=== PATIENT | male | born 1955 | race Caucasian/White ===

== ENCOUNTER 2018-03-26 15:33 | Emergency (ER) | payer OTHER ==
[2018-03-26 15:58] VITALS: BP 125/78
[2018-03-26] MEDS ORDERED: Lidocaine 1%* 5 ML VIAL INJ ONE (16:14)
--- NOTE | 2018-03-26 16:29 | UC ---
Laceration HPI - HPI Summary HPI Summary: 63 y/o male presents to the urgent care c/o right hand fourth digit cut w/ broken glass bottle at work around 1300 today. 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 Bleeding stopped w/ pressure. He has FROM of his Rt ring finger. Last tetanus vaccine was 12/2015. Pt deneis fever, numbness, SOB, chest pain, abdominal pain, N/v/d. - History Of Current Complaint Chief Complaint: UCLaceration Stated Complaint: FINGER LAC WC Time Seen by Provider: 03/26/18 16:12 Hx Obtained From: Patient Laceration Location: Finger - RT ring finger Mechanism Of Injury: Sharp Trauma Onset/Duration: Sudden Onset, Lasting Hours - 2 hrs Severity: Mild Pain Intensity: 1 Pain Scale Used: 0-10 Numeric Aggravating Factors: Movement Related History: Dominant Hand Right - Allergies/Home Medications Allergies/Adverse Reactions: Allergies Allergy/AdvReac Type Severity Reaction Status Date / Time codeine Allergy Intermediate paranoia Verified 03/26/18 15:59 PMH/Surg Hx/FS Hx/Imm Hx Previously Healthy: Yes - Pt denies PMHX - Surgical History Surgical History: Yes Surgery Procedure, Year, and Place: spleen removed - Family History Known Family History: Positive: Diabetes Family History: Multiple Myeloma - Social History Occupation: Employed Full-time Lives: With Family Alcohol Use: Rare Substance Use Type: None Smoking Status (MU): Former Smoker When Did the Patient Quit Smoking/Using Tobacco: 40 years ago - Immunization History Hx Tetanus, Diphtheria Vaccination: Yes - 12/2015 Review of Systems Constitutional: Negative Skin: Other - cut of RT ring finger w/ a glass Eyes: Negative ENT: Negative Respiratory: Negative Cardiovascular: Negative Gastrointestinal: Negative Genitourinary: Negative Motor: Negative Neurovascular: Negative Musculoskeletal: Other: - RT ring finger pain s/p cut Neurological: Negative Psychological: Negative Is Patient Immunocompromised?: No All Other Systems Reviewed And Are Negative: Yes Physical Exam - Summary Physical Exam Summary: Vital Signs Reviewed: Yes General: well developed, well nourished male sitting in the examining table w/o any apparent distress Eye Exam: Normal Eyes: Positive: Conjunctiva Clear - PERRLA, EOMI, fundi grossly normal ENT: Positive: Normal ENT inspection, Hearing grossly normal, Pharynx normal, TMs normal Neck: Positive: Supple, Nontender, No Lymphadenopathy Respiratory: Positive: Chest non-tender, Lungs clear, Normal breath sounds, No respiratory distress Cardiovascular: Positive: RRR, No Murmur, Pulses Normal, Brisk Capillary Refill Abdomen Description: Positive: Nontender, No Organomegaly, Soft. Negative: CVA Tenderness (R), CVA Tenderness (L) Bowel Sounds: Positive: Present Musculoskeletal: Positive: Strength Intact, ROM Intact, No Edema Neurological: Positive: Alert, Muscle Tone Normal Psychological Exam: Normal Skin: Positive:medial aspect of the RT 4th phalanx with a irregular superficial laceration about 2.2cm in size in a zig-zag shape near the DIPJ, non bleeding, no foreign body observed. mild tenderness to palpation, . FROM of RT arm, RT 4th phalanx, sensation intact, capillary refill brisk, and pulses WNL. Triage Information Reviewed: Yes Vital Signs: Initial Vital Signs Temp 98.2 F 03/26/18 15:53 Pulse 56 03/26/18 15:53 Resp 18 03/26/18 15:53 BP 125/78 03/26/18 15:53 Pulse Ox 100 03/26/18 15:53 Laceration Repair - Laceration Repair 1 Description: Irregular - Z-zag in shape superficial laceration of RT 4th phalanx Laceration Size After Repair: Length (cm) - 2.2cm Modified For Repair: No Type Injection: Local Anesthesia Used: 1.0% Lido - Digital block 3 ml Cleansing Completed Via Routine Prep: Yes Irrigation With Pressure Irrigation Device: Yes Closure Material: Sutures - 5 Closure Method: Single Layer Suture Of: Skin, SQ Suture Type: Nylon - 5.0 Laceration Course/Dx - Course/Dx Course Of Treatment: 63 y/o male presents to the urgent care c/o right hand fourth digit cut w/ broken glass bottle at work around 1300 today. 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 Bleeding stopped w/ pressure. He has FROM of his Rt ring finger. Last tetanus vaccine was 12/2015. Pt deneis fever, numbness, SOB, chest pain, abdominal pain, N/v/d. Hx obtained. PT w/ medial aspect of the RT 4th phalanx with a irregular superficial laceration about 2.2cm in size in a zig-zag shape near the DIPJ on examination. LACERATION PROCEDURE NOTE: . Copious irrigation was done with saline by the nurse and the wound explored. There was no FB or deep structure injury noted. FROM of RT forearm. procedure was explained and consent obtained, Timeout performed. Digital block performed w/o any adversed effect. The wound was anesthetized with 3 mL of 1% lido with good anesthesia. Sterile drape and prep were don. There were 5 sutures with 5.0 nylon type of suture. The length of the wound after closure was 2.2cm. No debridement done. Wound was covered bacitracin with sterile non adherent dressing by nurse. The Pt tolerated the procedure well without adverse effects. Neurovascular intact and FROM Rt 4th phalanx. Pt advised to f/u suture removal in 10-12 days and if any signs of infection develop to immediately return to the urgent care of PCP for further management and treatment. Pt understood and agreed and left the clinic ambulating A&Ox3. - Differential Dx - Laceration/Wound Differental Diagnoses: Abrasion, Laceration, Puncture Wound, Tendon Laceration Provider Diagnoses: 1- Laceration repair of Rt 4th phalanx Discharge - Sign-Out/Discharge Documenting (check all that apply): Patient Departure - D/c home - Discharge Plan Condition: Stable Disposition: HOME Prescriptions: Bacitracin OINTMENT* 1 applic TOPICAL BID #1 tube Patient Education Materials: Care For Your Stitches (ED), Laceration (ED) Referrals: Zayra Woo MD [Primary Care Provider] - 1 Week Additional Instructions: 1-Please apply topical antibiotic over the wound. Keep wound clean and dry 2- F/u suture removal in 10-12days days w/ your PCP or here at the urgent care. 3-Take Ibuprofen or Tylenol PO q6-8hrs prn for pain or swelling. Avoid too much flexion of your finger 4- If you develop fever or redness around your finger please return to the Urgent care or your PCP for further management. - Billing Disposition and Condition Condition: STABLE Disposition: Home Attestation Statement User Type: Provider - I was available for consult. This patient was seen by the HARINDER. The patient was not presented to, seen by, or examined by me. -Jeremías
== END 2018-03-26 17:25 | disposition home or self-care (01) ==
LOC: UCEAST 15:33
DX: S61.214A Laceration without foreign body of right ring finger without damage to nail, initial encounter (principal); Z88.5 Allergy status to narcotic agent; W25.XXXA Contact with sharp glass, initial encounter; Y92.9 Unspecified place or not applicable; Z87.891 Personal history of nicotine dependence
CPT/HCPCS: 12001; 99212; G0463

== ENCOUNTER 2018-04-05 17:42 | Emergency (ER) | payer OTHER ==
[2018-04-05 18:44] VITALS: BP 110/61
--- NOTE | 2018-04-05 19:05 | UC ---
HPI Wound/Suture Re-check - HPI Summary HPI Summary: patient had 5 sutures placed in right ring finger 10 days ago---healed well no issues or evidence of infection, here for suture removal - History Of Current Complaint Chief Complaint: UCLaceration Stated Complaint: R RING FINGER STITCHES REMOVAL Time Seen by Provider: 04/05/18 18:57 Hx Obtained From: Patient Onset/Duration: Lasting Days - 10 Surgical Site: right ring finger Pain Intensity: 0 Pain Scale Used: 0-10 Numeric - Allergies/Home Medications Allergies/Adverse Reactions: Allergies Allergy/AdvReac Type Severity Reaction Status Date / Time codeine Allergy Intermediate paranoia Verified 04/05/18 18:46 Home Medications: Home Medications NK [No Home Medications Reported] 04/05/18 [History Confirmed 04/05/18] PMH/Surg Hx/FS Hx/Imm Hx Previously Healthy: Yes - Surgical History Surgical History: Yes Surgery Procedure, Year, and Place: spleen removed - Family History Known Family History: Positive: Diabetes Family History: Multiple Myeloma - Social History Occupation: Employed Full-time Lives: With Family Alcohol Use: Rare Substance Use Type: None Smoking Status (MU): Former Smoker When Did the Patient Quit Smoking/Using Tobacco: 40 years ago - Immunization History Hx Tetanus, Diphtheria Vaccination: Yes - 12/2015 Review of Systems Constitutional: Negative Skin: Other - healing wound right ring finger Eyes: Negative ENT: Negative Respiratory: Negative Cardiovascular: Negative Gastrointestinal: Negative Genitourinary: Negative Motor: Negative Neurovascular: Negative Musculoskeletal: Negative Neurological: Negative Psychological: Negative Is Patient Immunocompromised?: No All Other Systems Reviewed And Are Negative: Yes Physical Exam Triage Information Reviewed: Yes Appearance: Well-Appearing, No Pain Distress, Well-Nourished Vital Signs: Initial Vital Signs Temp 98.1 F 04/05/18 18:41 Pulse 54 04/05/18 18:41 Resp 12 04/05/18 18:41 BP 110/61 04/05/18 18:41 Pulse Ox 100 04/05/18 18:41 Vital Signs Reviewed: Yes Eye Exam: Normal Eyes: Positive: Conjunctiva Clear ENT Exam: Normal ENT: Positive: Normal ENT inspection, Hearing grossly normal. Negative: Trismus , Muffled voice, Hoarse voice Dental Exam: Normal Neck exam: Normal Neck: Positive: Supple, Nontender Respiratory Exam: Normal Respiratory: Positive: Chest non-tender, No respiratory distress, No accessory muscle use Cardiovascular Exam: Normal Cardiovascular: Positive: RRR, Pulses Normal, Brisk Capillary Refill Musculoskeletal Exam: Normal Musculoskeletal: Positive: Strength Intact, ROM Intact, No Edema Neurological Exam: Normal Neurological: Positive: Alert, Muscle Tone Normal Psychological Exam: Normal Skin Exam: Normal Course/Dx - Course Course Of Treatment: 5 sutures removed from right ring finger patient tolerated well wound well approximated - Differential Dx - Laceration/Wound Provider Diagnoses: healing wound right ring finger-suture removal Discharge - Sign-Out/Discharge Documenting (check all that apply): Patient Departure - Discharge Plan Condition: Stable Disposition: HOME Patient Education Materials: Stitches Removal (ED) Referrals: Zayra Woo MD [Primary Care Provider] - If Needed - Billing Disposition and Condition Condition: STABLE Disposition: Home
== END 2018-04-05 19:15 | disposition home or self-care (01) ==
LOC: UCEAST 17:42
DX: S61.214D Laceration without foreign body of right ring finger without damage to nail, subsequent encounter (principal); X58.XXXD Exposure to other specified factors, subsequent encounter; Z88.5 Allergy status to narcotic agent; Z87.891 Personal history of nicotine dependence